=== PATIENT | female | born 1965 | race Hispanic/Latino ===

== ENCOUNTER 2018-03-17 09:51 | Inpatient (IN) | payer SELFPAY ==
--- NOTE | 2018-03-17 10:14 | ED PDOC ---
Arrival/HPI - General Historian: Patient, EMS EM Caveat: Altered Mental Status - History of Present Illness Time/Duration: Other (unknown) Symptom Onset: Other (unknown) <Lauren Hanson - Last Filed: 03/17/18 13:12> - Critical Care Critical Care Minutes: 90 minutes - History of Present Illness Time/Duration: Prior to Arrival <Genaro Lozada - Last Filed: 03/17/18 14:17> - General Chief Complaint: Altered Mental Status Time Seen by Provider: 03/17/18 09:54 - History of Present Illness Narrative History of Present Illness (Text): 03/17/18 10:13 Patient is a 52 year old female with unknown medical history who presents to the ED via EMS for altered mental status. Per EMS, patient was on a cruise ship alone without family or friends when someone working on the ship found her in her room unresponsive. Upon arrival to the ED patient was awake, alert, and oriented x3, however she had slurred speech and was slow to respond. Patient says she has no medical history and takes no medications at home but her history may be unreliable due to her current condition. She also denies history of smoking but does say she occasionally drinks alcohol. Patient cannot remember whether she had alcohol today or yesterday. Whenever I ask what is the last thing she remembers, she says "I don't know". ROS unattainable at this time. (Lauren Hanson) Past Medical History - Past History Past History: Unable to Obtain - Past Medical History Past Medical History: Unable to Obtain - Integumentary Other/Comment: BLLE sores. Discoloration to Abd area. Umbilical hernia - Psychiatric Hx Substance Use: No <Lauren Hanson - Last Filed: 03/17/18 13:12> - Provider Review Nursing Documentation Reviewed: Yes <Genaro oLzada - Last Filed: 03/17/18 14:17> Family/Social History Family/Social History: Unknown Family HX Smoking Status: Never Smoked Hx Alcohol Use: Yes Frequency of alcohol use: Socially Hx Substance Use: No <Lauren Hanson - Last Filed: 03/17/18 13:12> - Physician Review Nursing Documentation Reviewed: Yes <Genaro Lozada - Last Filed: 03/17/18 14:17> Allergies/Home Meds <Lauren Hanson - Last Filed: 03/17/18 13:12> <Genaro Lozada - Last Filed: 03/17/18 14:17> Allergies/Adverse Reactions: Allergies Unobtainable Allergy (Verified 03/17/18 12:00) Home Medications: Home Meds Medication Instructions Recorded Confirmed Unobtainable 03/17/18 03/17/18 Review of Systems - Review of Systems Systems not reviewed;Unavailable: Altered Mental Status <ValentinLamberto - Last Filed: 03/17/18 13:12> Physical Exam Temperature: Hypothermic (rectal temp of 86F) Blood Pressure: Hypertensive (156/84) Pulse: Regular Respiratory Rate: Normal Appearance: Positive for: Unkept, Cachectic Mental Status: Positive for: Alert and Oriented X 3, Confused. No: Agitated - Systems Exam Head: Present: Atraumatic, Normocephalic. No: Tenderness, Contusion, Swelling, Ecchymosis, Abrasion, Laceration Pupils: Present: PERRL, Sluggish. No: Pinpoint Extroacular Muscles: Present: EOMI Conjunctiva: Present: Normal Mouth: Present: Dry Nose (External): Present: Atraumatic Neck: Present: Normal Range of Motion. No: JVD Respiratory/Chest: Present: Clear to Auscultation, Good Air Exchange. No: Respiratory Distress, Accessory Muscle Use, Wheezes, Rales, Rhonchi Cardiovascular: Present: Regular Rate and Rhythm, Normal S1, S2. No: Murmurs Abdomen: Present: Hernias (large, irreducible), Other (ecchymosis of the bilateral flanks). No: Tenderness, Distention, Peritoneal Signs, Guarding Upper Extremity: Present: Normal Inspection. No: Cyanosis, Edema Lower Extremity: Present: Edema (2+ pitting extending up to the thighs bilaterally), Other (ulcerations around the bilateral lower extremities overling the tibia and around posteriorly, some with overlying black eschar and some with pink base; echymosis scattered throughout bilateral lower extremities) . No: NORMAL PULSES (difficulty palpating pulses due to edema) Neurological: Present: GCS=15 (slow to follow commands), CN II-XII Intact, Normal Sensory Function. No: Speech Normal (slurring of speech), Memory Normal Skin: Present: Other (see lower extremity exam above) Psychiatric: Present: Alert, Oriented x 3 <Valentin - Last Filed: 03/17/18 13:12> Vital Signs Pulse Resp BP Pulse Ox 03/17/18 11:41 64 16 99/57 L 100 03/17/18 11:22 61 16 143/75 100 03/17/18 10:38 63 16 133/83 100 03/17/18 09:51 62 16 156/84 H 100 Medical Decision Making - Critical Care Critical Care Minutes: 90 minutes <Lauren Hanson - Last Filed: 03/17/18 13:12> - Lab Interpretations I have reviewed the lab results: Yes - RAD Interpretation Still Runner: Radiologist - EKG Interpretation Interpreted by ED Physician: Yes Type: 12 lead EKG <Genaro Lozada - Last Filed: 03/17/18 14:17> ED Course and Treatment: 03/17/18 12:11 Nephrology, neurology, heme/onc, infectious disease, and cardiology were consulted. I spoke with Dr. Jensen who asked for a general surgery consult to place dialysis access. I spoke with the surgery resident, Keith, who spoke with Dr. Suarez. They will place dialysis access once patient is in the ICU. Two units of pRBCs were ordered for patient's low hemoglobin, as well as insulin 10 units with D50 and calcium gluconate for hyperkalemia. Patient was given 1 amp of bicarb for acidosis, and she will likely need to be put on a drip per Dr. Jensen for acidosis. I also started the patient on NS @ 125 cc/h for probable rhabdomyelysis. Dr. Muhammad came to evaluate the patient in the ED and accepted her for the ICU. 03/17/18 12:29 CXR: Creator : Erasmo Solano MD FINDINGS: Note the examination is slightly limited due to patient rotation to the right LUNGS: No acute consolidation Elevation right hemidiaphragm could be due to eventration. PLEURA: No significant pleural effusion identified, no pneumothorax apparent. CARDIOVASCULAR: Normal. OSSEOUS STRUCTURES: No significant abnormalities. VISUALIZED UPPER ABDOMEN: Normal. OTHER FINDINGS: None. IMPRESSION: Limited study at due to patient rotation. No acute consolidation. Elevation right hemidiaphragm could be due to eventration 03/17/18 13:12 CT Abdomen/Pelvis: FINDINGS: Artifacts: Limited due to motion and misregistration artifacts. Lung bases: There is bibasilar atelectasis. Heart: Cardiomegaly.Hyperdense cardiac septum may reflect patient's clinical diagnosis of anemia. Mitral valve calcification. ABDOMEN:Limitations: Absence of IV contrast decreases sensitivity for detecting vascular and visceral injury and abnormality. Liver: Heterogeneous enlarged fatty liver. Gallbladder and bile ducts: Gallbladder distention with multiple gallstones. Pancreas: Unremarkable. No ductal dilation. Spleen: Unremarkable. No splenomegaly. Adrenals: Unremarkable. No mass. Kidneys and ureters: Moderate bilateral hydroureteronephrosis with possible bilateral ureteral obstruction near the distal ureter/UVJ. Stomach and bowel: Moderate bowel distention with stool with surrounding infiltration. Correlation with clinical data is recommended as to related proctocolitis is clinically suspected. PELVIS: Appendix: The appendix not identified with complete certainty due to unopacified cecum and distal small bowel. There is lack of intra-abdominal fat. If clinical concern remains, a repeat study with thin sections after an appropriate time interval may allow oral contrast to opacify the cecum. Bladder: A Garcia catheter within the bladder. Mild bladder wall prominence. There is a fluid level within the bladder. Correlation with Garcia catheter function is recommended. Reproductive: Enlarged uterus with gas and complex density material within the endometrium for patient's age. Correlation with patient gynecology history menstrual cycle status/menopausal status is recommended if an acute process of endometriosis versus endometrial hyperplasia versus endometrial cancer is clinically suspected. ABDOMEN and PELVIS: Intraperitoneal space: Unremarkable. No free air. No significant fluid collection. Bones/joints: No acute fracture. No dislocation. Soft tissues: There is fat and fluid containing large ventral abdominal wall hernia seen on image 109 series 3. There is infiltration of the body wall representing anasarca. Vasculature: Unremarkable. No abdominal aortic aneurysm. Lymph nodes: Unremarkable. No enlarged lymph nodes. IMPRESSION: 1. Moderate bilateral hydroureteronephrosis with possible bilateral ureteral obstruction near the distal ureter/UVJ. 2. Enlarged uterus with gas and complex density material within the endometrium for patient's age. Correlation with patient gynecology history menstrual cycle status/menopausal status is recommended if an acute process of endometriosis versus endometrial hyperplasia versus endometrial cancer is clinically suspected. 3. Gallbladder distention with multiple gallstones. Correlation with internal medicine gynecology/urology history evaluation and further workup or followup as recommended by patient's clinical data. ( Lauren Hanson) 03/17/18 In agreement with resident note, which includes further HPI details. Patient was seen and evaluated with resident, came up with plan and treatment together. 03/17/18 11:46 Seen and examined with the resident. Our history and physical exam reveals a young woman who appears much much older than the stated age. Found on the cruise ship unresponsive. Multiple serious medical problems requiring ICU admission with multiple consultations. 03/17/18 11:[address]: Creator : Erasmo Solano MD FINDINGS: HEMORRHAGE:No intracranial hemorrhage. BRAIN:No evidence of large acute infarct. Note that the possibility of a small hyperacute infarct not excluded. Mild -moderate generalized volume loss. Minor vascular calcifications both carotid siphons. VENTRICLES:Unremarkable. No hydrocephalus. CALVARIUM:Unremarkable. PARANASAL SINUSES:Visualized paranasal air complex well-developed and currently well-aerated. Partial opacification of left mastoid air complex. MASTOID AIR CELLS: Unremarkable as visualized. No inflammatory changes. OTHER FINDINGS:None. IMPRESSION: Limited motion degraded study. No acute intracranial hemorrhage. Mild -moderate generalized volume loss. Partial opacification left mastoid air complex (Tolerico,Genaro) - Lab Interpretations Lab Results: 03/17/18 10:16 03/17/18 10:16 Lab Results 03/17/18 10:44: Urine Color Yellow, Urine Appearance Slight-cloudy, Urine pH 6.0 , Ur Specific [place] 1.010, Urine Protein 30 H, Urine Glucose (UA) Negative, Urine Ketones Negative, Urine Blood Large H, Urine Nitrate Negative, Urine Bilirubin Negative, Urine Urobilinogen 0.2, Ur Leukocyte Esterase Trace H, Urine RBC 0 - 2, Urine WBC 5 - 10, Ur Epithelial Cells 0 - 2 03/17/18 10:16: Alcohol, Quantitative < 10 03/17/18 10:16: Sodium 146, Potassium 6.8 H*, Chloride 117 H, Carbon Dioxide < 5 L, Anion Gap 31 H, BUN 158 H*, Creatinine 10.2 H*, Est GFR ( Amer) 5, Est GFR (Non-Af Amer) 4, Random Glucose 86, Uric Acid 15.8 H, Calcium 7.0 L, Phosphorus 12.6 H, Magnesium 2.1, Ferritin Pending, Total Bilirubin 0.3, AST 277 H, ALT 109 H, Alkaline Phosphatase 221 H, Lactate Dehydrogenase 2025 H, Total Creatine Kinase 9162 H, CK-MB (CK-2) 94.3 H, CK-MB (CK-2) % 1.0 L, Troponin I 0.09, Total Protein 5.2 L, Albumin 2.4 L, Globulin 2.7, Albumin/ Globulin Ratio 0.9 L 03/17/18 10:16: PT 15.9 H, INR 1.37 H, APTT 37.2 H 03/17/18 10:16: WBC 94.2 H*, RBC 2.39 L, Hgb 4.6 L*, Hct 15.3 L*, MCV 64.0 L, MCH 19.2 L, MCHC 30.1 L, RDW 26.9 H, Plt Count 626 H, MPV 9.1, Gran % 97.0 H, Lymph % (Auto) 1.6 L, [place] % (Auto) 1.3, Eos % (Auto) 0.0 L, Baso % (Auto) 0.1, Gran # 91.44 H, Lymph # (Auto) 1.5, [place] # (Auto) 1.2 H, Eos # (Auto) 0.0, Baso # (Auto) 0.06, Neutrophils % (Manual) 98 H, Lymphocytes % (Manual) 1 L, Monocytes % (Manual) 1, Platelet Evaluation High, Hypochromasia 3+, Poikilocytosis (manual 2+, Anisocytosis (manual) 2+, Microcytosis (manual) 2+ 03/17/18 10:16: Ammonia 54 H - RAD Interpretation Radiology Orders: 03/17/18 10:06 ABD & PELVIS W/O PO OR IV CONT [CT] Stat HEAD W/O CONTRAST [CT] Stat CXR [CHEST PORTABLE] [RAD] Stat - Medication Orders Current Medication Orders: Albuterol Sulfate (Albuterol 0.042% Inhal Neeta (1.25mg/3ml) Ud) 1.25 mg IH Q2H PRN PRN Reason: Shortness of Breath Calcium Acetate (Phoslo) 1,334 mg PO TID RASHI Last Admin: 03/17/18 13:53 Dose: Not Given Non-Admin Reason: NPO Dextrose (Dextrose 50% Inj) 50 ml IVP ONCE ONE Stop: 03/17/18 14:16 Sodium Chloride (Sodium Chloride 0.9%) 1,000 mls @ 125 mls/hr IV .Q8H RASHI Last Admin: 03/17/18 11:26 Dose: 125 mls/hr eMAR Start Stop Document 03/17/18 11:26 OCS (Rec: 03/17/18 11:26 OCS [id number]) Intravenous Solution Start Date 03/17/18 Start Time 11:26 Meropenem (Merrem Iv 1 Gm Premix) 50 mls @ 100 mls/hr IVPB Q8 RASHI PRN Reason: Protocol Last Admin: 03/17/18 13:53 Dose: 100 mls/hr eMAR Start Stop Document 03/17/18 13:53 JFG (Rec: 03/17/18 13:53 [id number]) Intravenous Solution Start Date 03/17/18 Start Time 13:53 End Date 03/17/18 End time 14:23 Total Infusion Time 30 Vancomycin HCl 2 gm/ Sodium (Chloride) 500 mls @ 170 mls/hr IVPB ONCE ONE PRN Reason: Protocol Stop: 03/17/18 14:54 Ondansetron HCl (Zofran Inj) 4 mg IVP Q6H PRN PRN Reason: Nausea/Vomiting Last Admin: 03/17/18 12:40 Dose: 4 mg IVP Administration Document 03/17/18 12:40 JFQuan (Rec: 03/17/18 13:55 [id number]) Charges for Administration # of IVP Administrations 1 Discontinued Medications Calcium Gluconate (Calcium Gluconate Iv) 1,000 mg IVP STAT STA Stop: 03/17/18 10:51 Last Admin: 03/17/18 11:25 Dose: 1,000 mg IVP Administration Document 03/17/18 11:25 OCS (Rec: 03/17/18 11:25 OCS [id number]) Charges for Administration # of IVP Administrations 1 Dextrose (Dextrose 50% Inj) 50 ml IVP STAT STA Stop: 03/17/18 10:51 Last Admin: 03/17/18 11:25 Dose: 50 ml IVP Administration Document 03/17/18 11:25 OCS (Rec: 03/17/18 11:25 OCS [id number]) Charges for Administration # of IVP Administrations 1 Insulin Human Regular (Humulin R) 10 units IVP STAT STA Stop: 03/17/18 10:51 Last Admin: 03/17/18 11:25 Dose: 10 units MAR Blood Glucose Document 03/17/18 11:25 OCS (Rec: 03/17/18 11:25 OCS [id number]) Blood Glucose Finger Stick Blood Glucose (70-120) 94 IVP Administration Document 03/17/18 11:25 OCS (Rec: 03/17/18 11:25 OCS [id number]) Charges for Administration # of IVP Administrations 1 Sodium Bicarbonate (Sodium Bicarbonate 8.4% (50 Meq) Syringe) 50 meq IVP ONCE ONE Stop: 03/17/18 10:51 Last Admin: 03/17/18 11:32 Dose: 50 meq IVP Administration Document 03/17/18 11:32 OCS (Rec: 03/17/18 11:32 OCS [id number]) Charges for Administration # of IVP Administrations 1 - PA / COMMODITIES MANAGER / Resident Statement MD/DO has reviewed & agrees with the documentation as recorded. MD/DO has examined the patient and agrees with the treatment plan. <Lauren Hanson - Last Filed: 03/17/18 13:12> - PA / COMMODITIES MANAGER / Resident Statement MD/DO has reviewed & agrees with the documentation as recorded. MD/DO has examined the patient and agrees with the treatment plan. - Scribe Statement The provider has reviewed the documentation as recorded by the Scribe <Genaro Lozada - Last Filed: 03/17/18 14:17> - Scribe Statement Kimmy Everett Provider Scribe Attestation: All medical record entries made by the Scribe were at my direction and personally dictated by me. I have reviewed the chart and agree that the record accurately reflects my personal performance of the history, physical exam, medical decision making, and the department course for this patient. I have also personally directed, reviewed, and agree with the discharge instructions and disposition. (Genaro Lozada) Disposition/Present on Arrival - Present on Arrival Any Indicators Present on Arrival: No History of DVT/PE: No History of Uncontrolled Diabetes: No Urinary Catheter: No History of Decub. Ulcer: No History Surgical Site Infection Following: None - Disposition Have Diagnosis and Disposition been Completed?: Yes Disposition Time: 11:10 <Lauren Hanson - Last Filed: 03/17/18 13:12> <Genaro Lozada - Last Filed: 03/17/18 14:17> - Disposition Diagnosis: Renal failure, Altered mental status, Transaminitis, Leukocytosis, Thrombocytosis, Hyperammonemia, Ventral hernia, Anemia, Hyperkalemia, Hyperphosphatemia, Rhabdomyolysis, Myoglobinuria Disposition: HOSPITALIZED Patient Problems: Current Active Problems Problem Status Onset Altered mental status Acute Anemia Acute Hyperammonemia Acute Hyperkalemia Acute Hyperphosphatemia Acute Leukocytosis Acute Myoglobinuria Acute Renal failure Acute Rhabdomyolysis Acute Thrombocytosis Acute Transaminitis Acute Ventral hernia Acute Condition: CRITICAL
[2018-03-17] MEDS ORDERED: Sodium Chloride 0.9% 1,000 ML IV SCH (10:30)
[2018-03-17 10:36] LABS: BASO # 0.06 K/mm3 (0.0-2.0); BASO % 0.1 % (0.0-3.0); GRAN # 91.44 (1.4-6.5); LYMPH # 1.5 (1.2-3.4); LYMPH % 1.6 % (22.0-35.0); MEAN CORPUSCULAR HEMOGLOBIN 19.2 pg (25.0-35.0); MEAN CORPUSCULAR HGB CONC 30.1 g/dl (31.0-37.0); MEAN PLATELET VOLUME 9.1 fl (7.0-11.0); MONO # 1.2 (0.1-0.6); MONO % 1.3 % (1.0-6.0); PLATELET COUNT 626 10^3/uL (120.0-450.0); RBC 2.39 10^6/uL (3.5-6.1); RED CELL DISTRIBUTION WIDTH 26.9 % (11.5-14.5)
[2018-03-17 10:44] LABS: TROPONIN I 0.09 ng/mL
[2018-03-17 10:45] LABS: ALB/GLOB RATIO 0.9 (1.1-1.8); ALBUMIN 2.4 g/dL (3.0-4.8); ALT/SGPT 109 U/L (7-56); AST/SGOT 277 U/L (14-36); BLOOD UREA NITROGEN 158 mg/dL (7-21); GFR AFRICAN-AMERICAN 5; GFR NON-AFRICAN AMERICAN 4
[2018-03-17 10:46] LABS: HEMOGLOBIN 4.6 g/dL (12.0-16.0); WHITE BLOOD COUNT 94.2 10^3/ul (4.5-11.0)
[2018-03-17] MEDS ORDERED: Insulin Regular 1 UNITS/0.01 ML ML IVP STA ×2 (10:50→14:18)
[2018-03-17] MEDS ORDERED: Dextrose 50% SYRINGE Inj (50 ml) IVP STA (10:50)
[2018-03-17] MEDS ORDERED: Sodium Bicarbonate (8.4%) 50 Meq Syringe IVP ONE (10:50)
[2018-03-17 10:53] LABS: INR 1.37 (0.93-1.08); PROTHROMBIN TIME 15.9 SECONDS (9.4-12.5)
[2018-03-17 10:54] LABS: PARTIAL THROMBOPLASTIN TIME 37.2 Seconds (25.1-36.5)
[2018-03-17 11:02] LABS: URINE BILIRUBIN NEGATIVE (NEGATIVE); URINE BLOOD LARGE (NEGATIVE); URINE GLUCOSE (UA) NEGATIVE (NEGATIVE); URINE LEUKOCYTE ESTERASE TRACE Leu/uL (NEGATIVE); URINE PROTEIN 30 mg/dL (<30 mg/dL); URINE UROBILINOGEN 0.2 E.U./dL (<1 E.U./dL)
[2018-03-17 11:04] LABS: URINE APPEARANCE SLIGHT-CLOUDY (CLEAR); URINE COLOR YELLOW (YELLOW)
[2018-03-17 11:21] LABS: CK-MB 94.3 ng/mL (0.0-3.6)
[2018-03-17 11:25] LABS: LYMPHOCYTE 1 % (22.0-35.0); MONOCYTE 1 % (1.0-6.0); NEUTROPHIL 98 % (50.0-70.0); PLATELET ESTIMATE HIGH (NORMAL)
[2018-03-17 11:26] LABS: ANISOCYTOSIS 2+; HYPOCHROMIA 3+; MICROCYTOSIS 2+; POIKILOCYTOSIS 2+
[2018-03-17 11:34] LABS: URINE EPITHELIAL CELLS 0 - 2 /hpf (0-5); URINE RBC 0 - 2 /hpf (0-2)
[2018-03-17 11:49] VITALS: O2SAT 100
--- NOTE | 2018-03-17 11:52 | CT ---
PROCEDURE: CT HEAD WITHOUT CONTRAST. HISTORY: AMS COMPARISON: None available. TECHNIQUE: Axial computed tomography images were obtained through the head/brain without intravenous contrast. Radiation dose: Total exam DLP = 873.83 mGy-cm. This CT exam was performed using one or more of the following dose reduction techniques: Automated exposure control, adjustment of the mA and/or kV according to patient size, and/or use of iterative reconstruction technique. Study is limited by motion artifact. FINDINGS: HEMORRHAGE: No intracranial hemorrhage. BRAIN: No evidence of large acute infarct. Note that the possibility of a small hyperacute infarct not excluded. Mild -moderate generalized volume loss. Minor vascular calcifications both carotid siphons. VENTRICLES: Unremarkable. No hydrocephalus. CALVARIUM: Unremarkable. PARANASAL SINUSES: Visualized paranasal air complex well-developed and currently well-aerated. Partial opacification of left mastoid air complex. MASTOID AIR CELLS: Unremarkable as visualized. No inflammatory changes. OTHER FINDINGS: None. IMPRESSION: Limited motion degraded study. No acute intracranial hemorrhage. Mild -moderate generalized volume loss. Partial opacification left mastoid air complex
[2018-03-17] MEDS ORDERED: Meropenem IV 1 gm in NS 50 ML IVPB SCH (11:58)
[2018-03-17] MEDS ORDERED: Vancomycin 2 GM in Sodium Chloride 0.9% 500 ML IVPB ONE (11:58)
--- NOTE | 2018-03-17 12:09 | RAD ---
HISTORY: AMS COMPARISON: No prior study available comparison FINDINGS: Note the examination is slightly limited due to patient rotation to the right LUNGS: No acute consolidation Elevation right hemidiaphragm could be due to eventration. PLEURA: No significant pleural effusion identified, no pneumothorax apparent. CARDIOVASCULAR: Normal. OSSEOUS STRUCTURES: No significant abnormalities. VISUALIZED UPPER ABDOMEN: Normal. OTHER FINDINGS: None. IMPRESSION: Limited study at due to patient rotation. . No acute consolidation Elevation right hemidiaphragm could be due to eventration
[2018-03-17 12:23] LABS: URIC ACID 15.8 mg/dL (2.5-6.2)
--- NOTE | 2018-03-17 12:26 | CP.PCM.CON ---
History of Present Illness - History of Present Illness History of Present Illness: 52 year old female with history of anticoagulation but for unknown reason was [place] [facility] found poorly responsive in her cabin on a cruise ship by a cruise shipping/receiving manager. She did not travel with any family or friends. In the ED, she was noted to be lethargic, responds to some questions but not oriented to place and time. She was noted to have abdominal bruising, leg bruising and lower leg wounds. She was found to be hypothermic on presentation. Labs were done which showed severe anemia, elevated CK levels, marked leukocytosis. Full ROS is unobtainable because of the patient's mental status. Infectious diseases consult is requested to further evaluate and manage. Review of Systems - Review of Systems Systems not reviewed;Unavailable: Altered Mental Status Past Patient History - Past Social History Smoking Status: Never Smoked - INTEGUMENTARY Other/Comment: BLLE sores. Discoloration to Abd area. Umbilical hernia - PSYCHIATRIC Hx Substance Use: No - SURGICAL HISTORY Hx Surgeries: No Meds Allergies/Adverse Reactions: Allergies Allergy/AdvReac Type Severity Reaction Status Date / Time Unobtainable Allergy Verified 03/17/18 12:00 - Medications Medications: Current Medications Calcium Acetate (Phoslo) 1,334 mg PO TID [facility] Sodium Chloride (Sodium Chloride 0.9%) 1,000 mls @ 125 mls/hr IV .Q8H [facility] Last Admin: 03/17/18 11:26 Dose: 125 mls/hr Physical Exam - Constitutional Appears: In Acute Distress, Chronically Ill, Other (lethargic but responds to some questions, not oriented to place and time) - Head Exam Head Exam: NORMAL INSPECTION - ENT Exam ENT Exam: Mucous Membranes Moist - Neck Exam Neck exam: Negative for: Lymphadenopathy, Meningismus - Respiratory Exam Respiratory Exam: Decreased Breath Sounds - Cardiovascular Exam Cardiovascular Exam: +S1, +S2 - GI/Abdominal Exam GI & Abdominal Exam: Soft. absent: Tenderness Additional comments: extensive ecchymoses noted over abdominal area, abdominal wall hernia noted which is soft but not reducible - Extremities Exam Additional comments: bilateral leg dry wounds with note of surrounding ecchymoses and foul smell emanating from the wounds Results - Vital Signs Recent Vital Signs: Last Vital Signs Temp Pulse 63 03/17/18 10:38 Resp 16 03/17/18 10:38 BP 133/83 03/17/18 10:38 Pulse Ox 100 03/17/18 10:38 - Labs Result Diagrams: 03/17/18 10:16 03/17/18 10:16 Labs: Laboratory Results - last 24 hr 03/17/18 11:25 POC Glucose (mg/dL) 94 Assessment & Plan - Assessment and Plan (Free Text) Plan: Assessment systemic Inflammatory response syndrome, R/O severe sepsis with acute encephalopathy and acute renal failure from intra-abdominal infection, R/O bilateral severe lower extremity skin and skin structure infection severe anemia acute rhabdomyolysis non-reducible abdominal wall hernia Plan Will start the patient on a dose of IV Vancomycin and start Merrem pending blood and urine cx, PCT; follow up CXR, CT A/P reviewed CT head patient will need emergent dialysis, will need correction of severe anemia prognosis is guarded at best and patient is in critical condition discussed with Dr. Muhammad, pelletizer tender on-call
[2018-03-17 12:27] LABS: BARBITURATES, UR NEGATIVE (NEGATIVE); BENZODIAZEPINES, UR NEGATIVE (NEGATIVE); OPIATES, UR NEGATIVE (NEGATIVE); PHENCYCLIDINE, UR NEGATIVE (NEGATIVE)
--- NOTE | 2018-03-17 13:02 | CT ---
EXAM: CT Abdomen and Pelvis Without Intravenous Contrast CLINICAL HISTORY: 52 years old, female; Pain; Abdominal pain; Additional info: AMS TECHNIQUE: Axial computed tomography images of the abdomen and pelvis without intravenous contrast. All CT scans at this facility use one or more dose reduction techniques, viz.: automated exposure control; ma/kV adjustment per patient size (including targeted exams where dose is matched to indication; i.e. head); or iterative reconstruction technique. 571 images are submitted. Coronal and sagittal reformatted images were created and reviewed. COMPARISON: No relevant prior studies available. FINDINGS: Artifacts: Limited due to motion and misregistration artifacts. Lung bases: There is bibasilar atelectasis. Heart: Cardiomegaly.Hyperdense cardiac septum may reflect patient's clinical diagnosis of anemia. Mitral valve calcification. ABDOMEN:Limitations: Absence of IV contrast decreases sensitivity for detecting vascular and visceral injury and abnormality. Liver: Heterogeneous enlarged fatty liver. Gallbladder and bile ducts: Gallbladder distention with multiple gallstones. Pancreas: Unremarkable. No ductal dilation. Spleen: Unremarkable. No splenomegaly. Adrenals: Unremarkable. No mass. Kidneys and ureters: Moderate bilateral hydroureteronephrosis with possible bilateral ureteral obstruction near the distal ureter/UVJ. Stomach and bowel: Moderate bowel distention with stool with surrounding infiltration. Correlation with clinical data is recommended as to related proctocolitis is clinically suspected. PELVIS: Appendix: The appendix not identified with complete certainty due to unopacified cecum and distal small bowel. There is lack of intra-abdominal fat. If clinical concern remains, a repeat study with thin sections after an appropriate time interval may allow oral contrast to opacify the cecum. Bladder: A Garcia catheter within the bladder. Mild bladder wall prominence. There is a fluid level within the bladder. Correlation with Garcia catheter function is recommended. Reproductive: Enlarged uterus with gas and complex density material within the endometrium for patient's age. Correlation with patient gynecology history menstrual cycle status/menopausal status is recommended if an acute process of endometriosis versus endometrial hyperplasia versus endometrial cancer is clinically suspected. ABDOMEN and PELVIS: Intraperitoneal space: Unremarkable. No free air. No significant fluid collection. Bones/joints: No acute fracture. No dislocation. Soft tissues: There is fat and fluid containing large ventral abdominal wall hernia seen on image 109 series 3. There is infiltration of the body wall representing anasarca. Vasculature: Unremarkable. No abdominal aortic aneurysm. Lymph nodes: Unremarkable. No enlarged lymph nodes. IMPRESSION: 1. Moderate bilateral hydroureteronephrosis with possible bilateral ureteral obstruction near the distal ureter/UVJ. 2. Enlarged uterus with gas and complex density material within the endometrium for patient's age. Correlation with patient gynecology history menstrual cycle status/menopausal status is recommended if an acute process of endometriosis versus endometrial hyperplasia versus endometrial cancer is clinically suspected. 3. Gallbladder distention with multiple gallstones. Correlation with internal medicine gynecology/urology history evaluation and further workup or followup as recommended by patient's clinical data.
[2018-03-17 13:30] LABS: VENOUS BLOOD GAS BASE EXCESS -21.5 mmol/L (0.0-2.0); VENOUS BLOOD GAS PO2 120 mm/Hg (30-55)
[2018-03-17 13:32] LABS: VENOUS BLOOD PH 7.12 (7.32-7.43)
--- NOTE | 2018-03-17 13:35 | CP.PCM.CON ---
History of Present Illness - History of Present Illness History of Present Illness: General Surgery Consult Note for Dr. Suarez Reason for consult: Dialysis Access 52 F with unknown PMH who was bought in by EMS to [facility] for altered mental status and dehydration. Patient was seen and evaluated in the ED. No family or friends were present. As per EMS, patient was found in her cruise ship room unresponsive lying on the ground. Everyone is required to "clock out" to get off the ship and she did not. Patient was found with belonging. Passport states that she is a resident of [place]. No family has been able to be contacted. When patient arrived to ED, she was alert and awake but only oriented to person and year. She appeared confused, had slurred speech, and delayed mentation. During evaluation, patient was unable to focus and pay attention to questions. Patient only responds with "I don't know," when asked what happened. Last thing she remembers was falling asleep. ROS was unobtainable due to clinical condition. PMH: unknown Meds: unknown Allergy: unknown PSH: unknown FH: unknown Social: denies tobacco/EtOH/illicit drug use Review of Systems - Review of Systems Systems not reviewed;Unavailable: Acuity of Condition Past Patient History - Past Social History Smoking Status: Never Smoked - INTEGUMENTARY Other/Comment: BLLE sores. Discoloration to Abd area. Umbilical hernia - PSYCHIATRIC Hx Substance Use: No - SURGICAL HISTORY Hx Surgeries: No Meds Allergies/Adverse Reactions: Allergies Allergy/AdvReac Type Severity Reaction Status Date / Time Unobtainable Allergy Verified 03/17/18 14:58 - Medications Medications: Current Medications Calcium Acetate (Phoslo) 1,334 mg PO TID RASHI Sodium Chloride (Sodium Chloride 0.9%) 1,000 mls @ 125 mls/hr IV .Q8H RASHI Last Admin: 03/17/18 11:26 Dose: 125 mls/hr Meropenem (Merrem Iv 1 Gm Premix) 50 mls @ 100 mls/hr IVPB Q8 RASHI PRN Reason: Protocol Vancomycin HCl 2 gm/ Sodium (Chloride) 500 mls @ 170 mls/hr IVPB ONCE ONE PRN Reason: Protocol Stop: 03/17/18 14:54 Ondansetron HCl (Zofran Inj) 4 mg IVP Q6H PRN PRN Reason: Nausea/Vomiting Physical Exam - Constitutional Appears: Confused, Cachectic, Chronically Ill - Head Exam Head Exam: NORMOCEPHALIC - Eye Exam Eye Exam: EOMI - ENT Exam ENT Exam: Mucous Membranes Dry - Neck Exam Neck exam: Negative for: Tenderness - Respiratory Exam Respiratory Exam: absent: NORMAL BREATHING PATTERN Additional comments: tachypneic - Cardiovascular Exam Cardiovascular Exam: REGULAR RHYTHM - GI/Abdominal Exam GI & Abdominal Exam: Hernia (umbilical, non-reducible, large), Soft. absent: Firm, Guarding, Rebound, Rigid, Tenderness - Exam Additional comments: dick catheter in place - Extremities Exam Extremities exam: Positive for: normal capillary refill, pedal pulses present. Negative for: calf tenderness Additional comments: R femoral line in placed various wounds on bilateral lower extremities - Back Exam Back exam: absent: CVA tenderness (L), CVA tenderness (R) - Neurological Exam Neurological exam: Altered - Psychiatric Exam Psychiatric exam: Flat Affect - Skin Skin Exam: Dry Additional comments: various wounds on bilateral lower extremities - R leg with 3 anterior and posterior, L leg with 2 anterior and 1 posterior large ecchymoses on anterior and posterior trunk Results - Vital Signs Recent Vital Signs: Last Vital Signs Temp Pulse 61 03/17/18 12:00 Resp 16 03/17/18 12:00 BP 99/57 L 03/17/18 12:00 Pulse Ox 100 03/17/18 12:00 - Labs Result Diagrams: 03/17/18 10:16 03/17/18 13:42 Labs: Laboratory Results - last 24 hr 03/17/18 03/17/18 03/17/18 11:25 11:43 11:50 Retic Count pO2 VBG pH VBG pCO2 VBG HCO3 VBG Total CO2 VBG O2 Sat (Calc) VBG Base Excess VBG Potassium Sodium Chloride Glucose Lactate FiO2 POC Glucose (mg/dL) 94 Venous Blood Potassium Urine Opiates Screen Negative Urine Methadone Screen Negative Ur Barbiturates Screen Negative Ur Phencyclidine Scrn Negative Ur Amphetamines Screen Negative U Benzodiazepines Scrn Negative U Oth Cocaine Metabols Negative U Cannabinoids Screen Negative Blood Type O POSITIVE Antibody Screen Negative Crossmatch See Detail BBK History Checked No verified bt 03/17/18 03/17/18 12:00 13:15 Retic Count 3.50 H pO2 120 H VBG pH 7.12 L* VBG pCO2 18.0 L* VBG HCO3 5.9 L VBG Total CO2 6.5 L VBG O2 Sat (Calc) 95.7 H VBG Base Excess -21.5 L VBG Potassium 6.3 H* Sodium 141.0 Chloride 116.0 H Glucose 136 H Lactate 1.4 FiO2 21.0 POC Glucose (mg/dL) Venous Blood Potassium 6.3 H* Urine Opiates Screen Urine Methadone Screen Ur Barbiturates Screen Ur Phencyclidine Scrn Ur Amphetamines Screen U Benzodiazepines Scrn U Oth Cocaine Metabols U Cannabinoids Screen Blood Type Antibody Screen Crossmatch BBK History Checked - Imaging and Cardiology CT scan - head Status: Image reviewed by me, Report reviewed by me CT scan - pelvis Status: Image reviewed by me, Report reviewed by me CT scan - abdomen Status: Image reviewed by me, Report reviewed by me Assessment & Plan - Assessment and Plan (Free Text) Assessment: 52 F with altered mental status, Renal failure, Uremia, Hyperkalemia and Severe anemia Plan: -Triple lumen dialysis catheter placed emergently (IV access needed as well) -Catheter is able to be used -Plan for emergent dialysis -f/u Nephrology -Management as per ICU team -Further recommendations as per Dr. Daniela Quintero PGY1 - Date & Time Date: 03/17/18 Time: 12:30
--- NOTE | 2018-03-17 13:36 | PCM.PROC ---
Procedures Attestation:: I certify that I have explained the specified Operation(s) or Procedure(s), risks, benefits and reasonable alternatives to the Patient and/or other person responsible. The opportunity was given to ask questions and all questions answered - Central Line Placement Right Femoral Hemodialysis Access Aseptic technique was employed throughout the procedure: Hand Hygiene done prior to procedure, Full sterile barriers (mask, hair cover, sterile gown, sterile gloves), Full body sterile drape, Chloraprep Antiseptic: 2 minute prep for Femoral CVP Time Out Performed: Yes Pt. Placed on Pulse Ox Monitor: Yes Central Line Prep: Chlorhexidine-Alcohol Combination Local Anesthesia Used: Lidocaine 1% Amount of Anesthesia Used (mls): 5 Ultrasound Used for Placement: Yes Central Line Lumen Inserted: triple Central Line Length: 20 cm Post Procedure: Sutured in Place, Good Blood Return, All Ports Aspirated, Flushed, Capped, Sterile Dressing Applied Secured by: Suture Post procedure dressing: Clear vapor permeable Post Procedure X-Ray: No Patient Tolerated Procedure: Well, No Complications Immediate Complications: None
[2018-03-17 14:07] LABS: ALB/GLOB RATIO 0.9 (1.1-1.8); ALBUMIN 2.3 g/dL (3.0-4.8); ALT/SGPT 121 U/L (7-56); AST/SGOT 290 U/L (14-36); BLOOD UREA NITROGEN 157 mg/dL (7-21); CALCIUM 6.9 mg/dL (8.4-10.5); GFR AFRICAN-AMERICAN 5; GFR NON-AFRICAN AMERICAN 4
[2018-03-17] MEDS ORDERED: Albuterol 0.042% Inhal Sol (1.25 mg/3 mL) UD IH PRN (14:11)
[2018-03-17] MEDS ORDERED: Dextrose 50% SYRINGE Inj (50 ml) IVP ONE (14:15)
[2018-03-17 14:23] LABS: VENOUS BLOOD GAS BASE EXCESS -20.4 mmol/L (0.0-2.0); VENOUS BLOOD GAS PO2 45 mm/Hg (30-55)
[2018-03-17 14:28] LABS: VENOUS BLOOD PH 7.18 (7.32-7.43)
[2018-03-17 14:52] LABS: ARTERIAL BLOOD GAS O2 SAT 97.6 % (95-98); ARTERIAL BLOOD GAS PH 7.25 (7.35-7.45); ARTERIAL BLOOD GAS TCO2 5.7 mmol.L (22-28)
[2018-03-17 14:53] LABS: ARTERIAL BLOOD GAS HCO3 5.3 mmol/L (21-28); ARTERIAL BLOOD GAS PCO2 12 mm/Hg (35-45)
[2018-03-17 15:47] VITALS: BMI 22.4
[2018-03-17] MEDS ORDERED: Pneumococcal 23-Valent Vaccine IM ONE (15:47)
[2018-03-17 16:00] VITALS: BP 143/77; PULSE 83; RESP 30; TEMP 91.8
--- NOTE | 2018-03-17 19:19 | CON ---
DATE: 03/17/2018 OPERATIONS TECHNICIAN NOTE REFERRING PHYSICIAN: Brock Arriola MD. CHIEF COMPLAINT: Patient presents to the emergency room with hypothermia, altered mental status. HISTORY OF PRESENT ILLNESS: Ms. Taylor, she is a 52-year-old cachectic female with unknown past medical history and present medical history. The patient presented to the emergency room with altered mental status from a cruise ship; it was stated that she has no family or friends with her. The patient was found in her room unresponsive and it was thought that she had been in the room approximately 2 days without anyone seeing her. The patient, presenting to the emergency room, they felt she was oriented, alert, awake, but slurred speech, but even though still confused and unable to answer appropriate questions as to what her past medical history was and whether she smoked or other pertinent history. At this time, the patient was transferred to the Intensive Care Unit. She is, at this time, hemodynamically stable and continues to be awake. No complaints of pain. Patient did have episode of vomiting, but no diarrhea. PAST MEDICAL HISTORY: Unable to obtain. ALLERGIES: UNABLE TO OBTAIN. SOCIAL HISTORY: Patient states that she does have occasional alcohol. Note, she does not smoke and no drug abuse. FAMILY HISTORY: Unable to obtain. REVIEW OF SYSTEMS: Unable to obtain. PHYSICAL EXAMINATION: VITAL SIGNS: Note, her temperature is 87.8, her pulse is 62, respirations of 23, and BP is 158/56. SKIN: Warm and dry. HEENT: Head atraumatic, normocephalic. Eyes reactive to light. Ear, nose and throat seemed to be within normal limits. NECK: Her neck is supple. No JVD. No thyroid enlargement. No lymph nodes. HEART: Regular rate and rhythm. Normal S1, S2. LUNGS: Reveal good breath sounds bilaterally. ABDOMEN: Soft. Patient has a very large ventral hernia and on both sides of her abdomen, there is diffuse ecchymosis. The patient has decreased bowel sounds and no organomegaly noted. GENITALIA: Deferred. RECTAL: Deferred. MUSCULOSKELETAL: No joint deformities. EXTREMITIES: Reveal lower extremities show large ulcerations of the lower extremities in lower part of both legs, may be chronic scabbing, as well as possible infection. There are ecchymotic areas along the thighs and the lower extremities as well. NEUROLOGICALLY: The patient is moving all extremities, is awake, alert, but confused. LABORATORY DATA: As far as laboratories are concerned, her white count is 94.2, hemoglobin is 4.6, hematocrit 15.3 with platelets of 626,000. The patient's PT is 15.9, INR is 1.37, and PTT is 37.2. VBG reveals a pH of 7.12, pCO2 of 18, pO2 of 120. Sodium is 146, potassium 6.8, chloride 117, CO2 of less than 5, anion gap of 31, BUN of 158 with a creatinine of 10.2, and patient's phosphorus is 12.6, calcium is 7. Her AST is 277, ALT is 109, alkaline phosphatase is 221. Ammonia is 54 with a lactate dehydrogenase of 2025 and a total creatine kinase of 9162. Patient's troponin is negative. As far as CT of her head, it reveals limited motion degraded study, no acute intracranial hemorrhages, [id number] generalized volume loss. There is a partial opacification of the left mastoid air complex. Chest x-ray reveals no acute consolidations, elevation of the right hemidiaphragm, could be due to eventration. CT of the abdomen reveals that the patient has moderate bilateral hydroureteronephrosis with possible bilateral ureteral obstruction. She has an enlarged uterus with gas and complex density material within the endometrium. It is felt that it could be endometriosis versus endometrial hyperplasia versus endometrial carcinoma. Patient has a gallbladder distended with multiple stones. IMPRESSION: As far as my impression, this patient has possible sepsis with acute renal failure, altered mental status secondary to encephalopathy due to uremia or abnormal liver function with increased ammonia. The patient has hypothermia, abdominal, and lower extremity ecchymosis, also lower extremity ulcerations. She has a large ventral hernia as well as leukocytosis, possible leukemia. The patient is noted to have severe anemia; acute renal failure; altered mental status; coagulopathy; cachexia; metabolic acidosis; bilateral lower lobe atelectasis; hyperkalemia; rhabdomyolysis; enlarged uterus, rule out cancer; gallstones; and distended gallbladder. PLAN: As far as our plan, consults have been called for Renal, Infectious Disease, Neuro, Hematology, and Cardiology. She will need a [facility]TEGRITY SPECIALIST consult. Patient is being evaluated for possible transfer to [facility] for acute dialysis. At this time, we are getting arterial blood gas and we will evaluate for transfusion. Patient has been given insulin and dextrose for the hyperkalemia. She is on IV fluids of normal saline and we will possibly be started on a bicarb drip. We will repeat her CMP and at this time, the patient is on Zofran p.r.n. She is on vancomycin and meropenem as well as PhosLo. We will continue to treat aggressively along with the other consultants and the primary care doctor. Con Muhammad MD
--- NOTE | 2018-03-18 03:23 | HP ---
HISTORY OF PRESENT ILLNESS: Patient is a 52-year-old who was brought to emergency room by EMS, when the cruise ship landed, patient was found to be to have altered mental status. Patient is confused and disoriented, unable to give much history. Information gathered from ER physician. She is 52-year-old who was in cruise and she does state she is from [place] and she states she has no medical issue and have seen doctors many, many years ago. Patient was on cruise alone although she claims she has 2 brothers and a sister in [place]. Patient was found to be unresponsive by a cruise worker. Patient mumbles and has slurring speech. PAST MEDICAL HISTORY: She denies any significant past medical history. No history of nausea, vomiting, or diarrhea. MEDICATIONS: Denies taking any medications. ALLERGIES: NO HISTORY OF ALLERGIES. REVIEW OF SYSTEMS: She is somnolent, but arousable on verbal commands, has shallow breathing, opens eye on painful stimuli. PHYSICAL EXAMINATION: VITAL SIGNS: Patient has a temperature of , pulse 80, respirations 26, blood pressure initially was , went up to 159/80. LUNGS: Bilateral fair airflow. HEART: S1 and S2 audible. ABDOMEN: Soft, nontender. No rebound, no guarding. NEUROLOGIC: Patient is sleepy, but arousable. EXTREMITIES: Bilateral legs, she has erythema and ulcer, seems to be few days old. LABORATORY EXAMINATION: WBC is , hemoglobin 4.6, hematocrit 15.3. PT 15.9, INR 1.37. Chemistry: Sodium 149, potassium 6.3, chloride 117, CO2 of 5, BUN 157, creatinine 9.8, blood sugar 130. AST 290, ALT 121, alk phos 231. Urine, trace leukocytes. Urine tox is negative. ASSESSMENT: 1. Acute metabolic acidosis. 2. Metabolic encephalopathy. 3. Acute renal failure. 4. Symptomatic anemia. PLAN: Patient needs urgent dialysis. Since this facility was not available in [facility], initially patient was admitted in ICU from where she was transferred to ICU in [facility] to have emergent dialysis. Brock Arriola MD
[2018-03-18 09:00] LABS: HEPATITIS B SURFACE AG Negative (NEGATIVE)
[2018-03-18 09:05] LABS: HEPATITIS B CORE AB NEGATIVE (NEGATIVE)
[2018-03-18 09:17] LABS: HEPATITIS C ANTIBODY NEGATIVE (NEGATIVE)
--- NOTE | 2018-03-18 09:31 | CARD ---
APPROVED REPORT EKG Measurement Heart [id number] <Conclusion> Normal sinus rhythm Low voltage QRS limb leads Cannot rule out Anteroseptal infarct, age undetermined NSSTW changes Prolonged QTc
== END 2018-03-17 16:34 | disposition short-term general hospital (02) | DRG 682 ==
LOC: ED 09:51 → ERH 11:04 → CCU 12:14
PROVIDERS: ADMIT Internal Medicine; ATTEND Internal Medicine
PROC: 06HY33Z Insertion of Infusion Device into Lower Vein, Percutaneous Approach (ICD-10-PCS; principal; 2018-03-17)
DX: N17.9 Acute kidney failure, unspecified (principal); G93.41 Metabolic encephalopathy; M62.82 Rhabdomyolysis; E87.2 Acidosis; R64 Cachexia; L97.909 Non-pressure chronic ulcer of unspecified part of unspecified lower leg with unspecified severity; D64.9 Anemia, unspecified; K43.9 Ventral hernia without obstruction or gangrene; E87.5 Hyperkalemia; K80.20 Calculus of gallbladder without cholecystitis without obstruction; N13.30 Unspecified hydronephrosis; N85.2 Hypertrophy of uterus; Z68.22 Body mass index [BMI] 22.0-22.9, adult